=== PATIENT | female | born 1995 | race Caucasian/White ===

== ENCOUNTER 2017-08-31 04:37 | Emergency (ER) | payer OTHER ==
[~2017-08-31] VITALS: Ht 162.6 cm; Wt 71.3 kg
[2017-08-31 04:46] VITALS: TEMP 36.9; Ht 162.6 cm; Wt 71.3 kg
--- NOTE | 2017-08-31 04:55 | EMERGENCY ROOM VISIT NOTE ---
History Report prepared by Олег: Yahir Perkins Under the Supervision of: Dr. Hoa Paul D.O. First contact with patient: 04:40 Chief Complaint: ALCOHOL OVERDOSE Stated Complaint: ALCOHOL History of Present Illness The patient is a 21 year old female who presents to the Emergency Room with complaints of persistent general alcohol intoxication [employer]. Per nursing staff, the patient was carrying a traffic sign near [place]. She has been somewhat uncooperative. The patient states she was at an apartment for a fraternity constitution party drinking alcohol. She states that she was walking home and passed [place] when she was stopped by police. She denies any underlying medical problems. 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 She reports the abrasions on her legs are from last weekend. She denies any vomiting. She states that she is currently on her cycle. Patient is crying and concerned for her parents having to pay for her medical bill. HPI limited secondary to alcohol intoxication. Source of History: patient, nursing staff History Limited By: intoxication (alcohol) Onset: STE[employer] Position: other (general ) Quality: other (alcohol intoxication) Timing: other (persistent) Associated Symptoms: No vomiting Review of Systems ROS limited secondary to alcohol intoxication. Past Medical & Surgical Medical Problems: (1) No Known Active Medical Problems Family History No pertinent family history Social History Smokeless Tobacco Use: No Alcohol Use: heavy Marital Status: single Housing Status: lives with roommate Occupation Status: [employer] student Current/Historical Medications No Active Prescriptions or Reported Meds Allergies Coded Allergies: No Known Allergies (Unverified , 08/31/17) Physical Exam Vital Signs Date Time Temp Pulse Resp B/P (MAP) Pulse Ox O2 Delivery O2 Flow Rate FiO2 08/31/17 06:50 Room Air 08/31/17 06:47 132 21 133/94 98 Room Air 08/31/17 05:32 115 18 111/97 98 Room Air 08/31/17 04:46 36.9 126 18 144/127 100 Room Air 08/31/17 04:45 137 Physical Exam General: Tearful on exam. Smells of ETOH. HEENT: Head - normocephalic and atraumatic Pupils are equal, round, and reactive to light. Extraocular eye muscles are intact, and sclera are anicteric. Nose - moist nasal mucosa without discharge. Mouth - moist buccal mucosa. Oropharynx is nonerythematous and there is no tonsillar exudate or edema noted. Neck: Supple; no JVD, nuchal rigidity, cervical lymphadenopathy. Heart: Tachycardic rate and regular rhythm. There is a normal S1 and S2 with no murmurs, clicks, or gallops appreciated. Lungs: Clear to auscultation bilaterally with no wheezes, rales, or rhonchi. Abdomen: Soft, completely nontender, nondistended, with good bowel sounds. There are no palpable pulsatile masses or hepatosplenomegaly. There is no guarding, rigidity, or rebound noted. Extremities: No evidence of cyanosis, clubbing, or edema. There are easily palpable peripheral pulses. Skin: warm and diaphoretic with good turgor and no rashes. Medical Decision & Procedures Laboratory Results 08/31/17 04:50 Test 08/31/17 04:50 Anion Gap 9.0 mmol/L (3-11) Est Creatinine Clear Calc Drug Dose 91.3 ml/min Estimated GFR () 99.4 Estimated GFR (Non- 85.7 BUN/Creatinine Ratio 13.7 (10-20) Calcium Level 9.3 mg/dl (8.5-10.1) Ethyl Alcohol mg/dL 260.0 mg/dl (0-3) Laboratory results per my review. ED Course 0445: Past medical records reviewed. The patient was evaluated in room A11B. A complete history and physical exam was performed. The patient was placed in the prone position to avoid aspiration. They were observed on the school lunch monitor and pulse oximeter. Labs were drawn as above 0556: I reassessed the patient at this time. Upon entering the room, the patient's heart rate was 97 while she was awake and watching TV. After some discussion, her heart rate went up to 121. She is sitting upright and she is awake and cooperative. I informed her that she may go home with a sober friend, otherwise she will be here until 0900. I discussed the results and treatment plan with the patient. I answered all pertaining questions that she had. She expressed understanding and verbalized agreement. The patient will be discharged home when a sober friend arrives. 0642: I reassessed the patient at this time. She is attempting to contact friends for a ride. 0715: A sober friend has arrived and she will be discharged at this time. Medical Decision The patient is a 21 year old female who presents to the ED with alcohol intoxication. Differential diagnosis includes alcohol overdose, drug intoxication, head injury, and hypoglycemia. Lab results showed: Alcohol 260. Glucose 136. Normal renal function. The patient was brought to the emergency department after consuming too much alcohol. There were no obvious signs of trauma or complaints of pain. They were observed closely throughout the night and remained stable while here in the ER. The patient was allowed time to sober up prior to discharge. I had a conversation with the patient about the hazards of such excessive alcohol use. The patient remained awake and alert throughout her stay here in the emergency department. She denies any trauma. Medication Reconcilliation Current Medication List: was personally reviewed by me Blood Pressure Screening Patient's blood pressure: Normal blood pressure Impression Primary Impression: Alcohol overdose Scribe Attestation The scribe's documentation has been prepared under my direction and personally reviewed by me in its entirety. I confirm that the note above accurately reflects all work, treatment, procedures, and medical decision making performed by me. Departure Information Dispostion Home / Self-Care Prescriptions No Active Prescriptions or Reported Meds Forms HOME CARE DOCUMENTATION FORM, IMPORTANT VISIT INFORMATION Patient Instructions ED Overdose Alcohol, [facility]: [employer] Students and Alcohol Related Visits, My [facility] Additional Instructions Avoid such excessive alcohol use in the future. Tylenol 650 mg every 6 hours for headache. Drink plenty of fluids and take a bland diet today. Return to the emergency department for worsening symptoms or any medical concerns. Problem Qualifiers Primary Impression: Alcohol overdose Encounter type: initial encounter Injury intent: accidental or unintentional Qualified Codes: T51.91XA - Toxic effect of unspecified alcohol , accidental (unintentional), initial encounter
[2017-08-31 05:27] LABS: CALCIUM 9.3 mg/dl (8.5-10.1); CREATININE 0.96 mg/dl (0.60-1.20); POTASSIUM 3.8 mmol/L (3.5-5.1)
[2017-08-31 07:25] VITALS: BP 125/96; PULSE 124; O2SAT 98
== END 2017-08-31 07:47 | disposition home or self-care (01) ==
LOC: EDBD 04:37 → C.EDA 04:41
DX: T51.91XA Toxic effect of unspecified alcohol, accidental (unintentional), initial encounter (principal)